=== PATIENT | female | born 1990 | race Caucasian/White ===

== ENCOUNTER 2025-02-15 11:59 | Observation (INO) ==
--- NOTE | 2025-02-15 12:18 | Emergency Department Note ---
HPI - Nausea/Vomiting/Diarrhea General Chief complaint: Nausea/Vomiting/Diarrhea Stated complaint: N/V, COLD SWEATS, DIARRHEA Time Seen by Provider: 02/15/25 12:11 Source: patient Mode of arrival: walk-in Limitations: no limitations History of Present Illness HPI Narrative: This is a 34 year old female patient that presents to the ER with c/o diffuse abdominal pain with N/V/D for 2 days. Patient denies any chest pain, SOB, back pain, fever, chills or painful urination MD elicited complaint: Reports nausea, vomiting, diarrhea and abdominal pain Onset (ago): day(s) (2) Location of pain: Reports diffuse Pain consistency: Reports constant Severity: mild Quality: Reports cramping Exacerbating factors: Reports none Relieving factors: Reports none Associated symptoms: Reports nausea/vomiting Related Data Home Medications Medication Instructions Recorded Confirmed bictegravir 50 mg-emtricitabine 1 tab PO DAILY 5 02/15/25 200 mg-tenofovir alafenam 25 mg tablet (Biktarvy) buspirone 10 mg tablet 10 mg PO Q8H 02/15/25 sertraline 25 mg tablet 25 mg PO Q24H 02/15/2502/15 Allergies Allergy/AdvReac Type Severity Reaction Status Date / Time No Known Drug Allergies Allergy Verified 02/15/25 12:21 Review of Systems Status of ROS 10 or more systems reviewed and unremark able except as noted in history and below Constitutional Denies: fever, chills, change in weight, fatigue, malaise or night sweats Eyes Denies: change in vision, blurry vision, blind spots or light sensitivity Ears, nose, mouth, and throat Denies: throat pain, neck pain, throat swelling, difficulty swallowing, hoarseness, mouth pain or swelling of lips/tongue Cardiovascular Denies: chest pain, palpitations, edema, swelling of feet/ankles, lightheadedness or shortness of breath with exertion Respiratory Denies: shortness of breath, cough, wheezing, stridor, pain on inspiration, change in phlegm color or coughing up blood Gastrointestinal Reports: abdominal pain, nausea, vomiting and diarrhea Genitourinary Denies: painful urination, urinary frequency, urinary urgency, urinary incontinence or blood in urine Musculoskeletal Denies: back pain, neck pain, extremity pain, extremity swelling, joint pain or limited range of motion Integumentary/Breast Denies: rash, itching, redness, skin pain, skin tenderness or skin swelling Neurological Denies: headache, numbness in extremities, weakness in extremities, lack of coordination, dizziness, vertigo or confusion Psychiatric Denies: anxiety, mood swings, panic attacks, change in sleep pattern or hopelessness Endocrine Denies: excessive urination, excessive thirst, fatigue, cold intolerance or excessive sweating Hematologic/Lymphatic Denies: easy bruising, easy bleeding or enlarged lymph nodes Allergic/Immunologic Denies: hives, throat swelling, tongue swelling, facial swelling or wheezing PFSH PFSH Medical History (Updated 02/15/25 @ 12:21 by Regi Newby RN) Anxiety Surgical History (Updated 09/30/24 @ 07:34 by Ashley Kennedy RN) H/O tubal ligation H/O section Social History Smoking status: current every day smoker Do you use any of these nicotine containing products: vaping products Second hand tobacco smoke exposure: No Within the past year, how often did you have a drink containing alcohol: never Within the past year, how often did you have six or more drinks on one occasion: never Score interpretation: A score less than 3 is consistent with normal alcohol consumption. Non-prescribed substance use: denies use What is your current living situation: I presently have a place to live Problems where you live: no known problems In the past 12 months, utilities in danger of being shut off: no In past 12 months, lack of transportation kept you from medical appts, meetings, work, or getting things needed for daily living: No How hard is it for you to pay for the very basics like food, housing, medical care, and heating: decline to answer Past 12 mos, fear food will run out before able to buy more: never true In past 12 months, food didn't last until money to buy more: never true Are you following a diet prescribed by a doctor: No Are you following a special diet: No Do you want help finding or keeping work or a job: I do not need or want help Known occupational exposures/hazards: No Highest level of school completed/degree received: decline to answer Do you want help with school or training: No How many days of moderate to strenuous exercise, like a brisk walk, did you do in the last 7 days: decline to answer Caffeine: No How often does anyone, including family, friends and others, physically hurt you : never How often does anyone, including family, friends and others, insult or talk down to you: never How often does anyone, including family, friends and others, threaten you with harm: never How often does anyone, including family, friends and others, scream or curse at you: never Firearms in home: no Do you need help with ADLs: I don't need any help Due to a physical, mental, or emotional condition, do you have difficulty doing errands alone such as visiting a doctor's office or shopping: No Little interest or pleasure in doing things: not at all Feeling down, depressed, or hopeless: not at all Feel stressed/tense/nervous/anxious/difficulty sleeping: not at all Due to disability, difficulty making decisions: No Do you think of yourself as: straight/heterosexual Gender Identity: female Are you currently sexually active: No Are you using contraception or practicing any form of control: No service: No Exam Constitutional: normal general appearance and no apparent distress Vital Signs - 24 hr 02/15/25 12:07 02/15/25 12:34 02/15/25 12:45 Temperature 98.9 F Pulse Rate 93 H Respiratory Rate 20 Blood Pressure 96/38 120/47 113/48 Pulse Oximetry 100 Oxygen Delivery Me thod Room Air 02/15/25 13:00 02/15/25 13:13 02/15/25 13:15 Temperature Pulse Rate 69 Respiratory Rate 20 Blood Pressure 109/51 115/57 112/54 Pulse Oximetry 96 Oxygen Delivery Ak thod Room Air HENMT: normocephalic, head/scalp atraumatic, hearing grossly normal bilaterally, external ears normal, EACs normal, nasal mucous membranes normal, external nose normal, oral mucous membranes normal and oropharynx normal Eyes: PERRL, EOMs intact bilaterally, conjunctivae normal and no scleral icterus Neck/C-Spine: visual inspection normal and trachea midline Lymph: no lymphadenopathy noted Chest: inspection of chest normal Respiratory: breath sounds equal bilaterally, normal respiratory effort, clear to auscultation bilaterally, no wheezes, no rales, no retractions, no use of accessory muscles and chest percussion normal Cardiovascular: normal heart rate noted, regular rhythm noted, no gallop, no rub, no murmur, no JVD, no clicks, peripheral pulses 2+ throughout, no bruits noted and no additional abnormal heart sounds Gastrointestinal: abdomen normal to inspection, abdomen soft to palpation, tender to palpation (diffuse) (mild), nontender to percussion, nondistended, normoactive bowel sounds, no hepatosplenomegaly, no masses, no pulsatile mass, no ascites and no hernia Genitourinary: no CVA tenderness Back/Pelvis: spine normal to inspection Extremities: normal to inspection, normal to palpation, no tenderness, full ROM, no joint enlargement and no deformity Neurology: no movement abnormality noted, no focal motor deficit noted, no sensory deficits noted, gait normal, speech normal, coordination normal, no pronator drift noted, no fasciculations noted and GCS normal Psychiatry: mental status grossly normal, oriented x3, thought process normal, cooperative and affect normal Skin: skin color normal Course Course Hospital Course: 1502: Due to elevated lactic, ongoing N/V, and hypokalemia, will admit patient to the medical floor for further evaluation and treatment. No s/s of acute d istress noted Vital Signs Vital signs: Vital Signs Temperature 98.9 F 02/15/25 12:07 Pulse Rate 93 H 02/15/25 12:07 Respiratory Rate 20 02/15/25 12:07 Blood Pressure 96/38 02/15/25 12:07 Pulse Oximetry 100 02/15/25 12:07 Oxygen Delivery Method Room Air 02/15/25 12:07 Temperature 98.9 F 02/15/25 12:07 Pulse Rate 69 02/15/25 13:13 Respiratory Rate 20 02/15/25 13:13 Blood Pressure 112/54 02/15/25 13:15 Pulse Oximetry 96 02/15/25 13:13 Oxygen Delivery Method Room Air 02/15/25 13:13 Discharge Plan Discharge Patient Disposition: Admitted As Observation Condition: Stable Clinical Impression: Hypokalemia, UTI (urinary tract infection), Elevated lactic acid level, Nausea & vomiting Time of Disposition: 15:04
[2025-02-15] MEDS ORDERED: 0.9 % SODIUM CHLORIDE 1000 ML 1,000 ML IV ONE (12:22)
[2025-02-15] MEDS ORDERED: ONDANSETRON HCL/PF 4 MG/2 ML VIAL ONE (12:22)
[2025-02-15] MEDS: 0.9 % SODIUM CHLORIDE 1000 ML 1,000 ML IV STA (12:24)
[2025-02-15] MEDS: ONDANSETRON HCL/PF 4 MG/2 ML VIAL INJ STA (12:24)
[2025-02-15 12:45] LABS: Basophils%(Percent) Auto 0.5 (0.1-0.85); Eosinophils%(Percent) Auto 0.2 % (0.4-2.8); Granulocytes % - Auto 76.7 % (47.8-71.3); Granulocytes#(Absolute)- Auto 5.9 (2.3-6.0); Hematocrit 42.9 % (35.9-46.7); Mean Corpuscular Volume 92.2 fl (81.0-93.7); Monocytes #(Absolute)- Auto 0.4 (1.1-3.1); Monocytes %(Percent)- Auto 5.5 % (3.6-9.8); Platelet Count 236 K/uL (152-353); White Blood Count 7.7 K/uL (4.3-9.3)
[2025-02-15 12:59] LABS: Potassium 3.1 mmol/L (3.6-5.2)
[2025-02-15] MEDS: POTASSIUM CHLORIDE 20 MEQ TAB.ER.PRT PO ONE (13:20)
[2025-02-15 13:22] LABS: PH BODY FLUID EXCP BLOOD 6.5 (5 - 9); Specific Gravity Urine 1.025 (1.001-1.035); Urine Appearance HAZY (CLEAR); Urine Blood TRACE (NEG - TRACE); Urine Color YELLOW (STRAW/YELL.); Urine Urobilinogen Normal (NORMAL)
[2025-02-15 13:34] LABS: Urine Amorphous Sediment Negative (Negative); Urine Yeast Negative (Negative)
[2025-02-15] MEDS ORDERED: CEFTRIAXONE SODIUM 1 GM VIAL ONE (13:52)
[2025-02-15] MEDS ORDERED: 0.9 % SODIUM CHLORIDE MB+ 50 ML IV ONE (13:52)
[2025-02-15] MEDS: CEFTRIAXONE SODIUM 1 GM in 0.9 % SODIUM CHLORIDE MB+ 50 ML IV ONE (13:58)
[2025-02-15] MEDS: 0.9 % SODIUM CHLORIDE 1000 ML 1,000 ML IV ONE (14:27)
[2025-02-15] MEDS: KETOROLAC 30 MG/ML INJ VIAL IVP ONE (16:00)
[2025-02-15] MEDS ORDERED: CIPROFLOXACIN 400 MG/200ML-D5W 400 MG/200 ML PIGGYBACK IV ONE (16:49)
[2025-02-15] MEDS: CIPROFLOXACIN 400 MG/200ML-D5W 400 MG/200 ML PIGGYBACK IV SCH (16:51)
[2025-02-15] MEDS ORDERED: DICYCLOMINE HCL 10 MG/ML AMPUL IM ONE (18:20)
[2025-02-15] MEDS: DICYCLOMINE HCL 10 MG/ML AMPUL IM STA (18:37)
[2025-02-15] MEDS ORDERED: POTASSIUM CL 40 MEQ/30 ML 40 MEQ/30 ML LIQUID PO SCH (19:30)
[2025-02-15] MEDS ORDERED: ONDANSETRON HCL/PF 4 MG/2 ML VIAL INJ PRN (20:28)
[2025-02-15] MEDS ORDERED: MAGNESIUM, ALUMINUM HYDROXIDE 30 ML ORAL.SUSP PO PRN (20:28)
[2025-02-15] MEDS ORDERED: ACETAMINOPHEN 500 MG TABLET PO PRN (20:28)
[2025-02-15] MEDS: BUSPIRONE HCL 5 MG TABLET PO SCH (22:12)
[2025-02-15] MEDS: SERTRALINE HCL 50 MG TABLET PO SCH (22:12)
[2025-02-15] MEDS: 0.9 % SODIUM CHLORIDE 1000 ML 1,000 ML IV SCH (22:13)
[2025-02-16 05:32] LABS: Basophils #(Absolute) Auto 0.1 (0.0-0.1); Eosinophils%(Percent) Auto 0.9 % (0.4-2.8); Granulocytes#(Absolute)- Auto 3.1 (2.3-6.0); Hematocrit 35.8 % (35.9-46.7); Mean Corpuscular Volume 91.8 fl (81.0-93.7); Monocytes #(Absolute)- Auto 0.6 (1.1-3.1); Monocytes %(Percent)- Auto 10.4 % (3.6-9.8); Platelet Count 179 K/uL (152-353); White Blood Count 5.5 K/uL (4.3-9.3)
[2025-02-16 06:00] LABS: Potassium 3.3 mmol/L (3.6-5.2)
[2025-02-16] MEDS: KETOROLAC 30 MG/ML INJ VIAL IVP ONE (06:17)
--- NOTE | 2025-02-16 06:46 | History & Physical Report ---
H&P: HPI History of Present Illness Chief complaint: N/V, COLD SWEATS, DIARRHEA Narrative: I did see this very pleasant but ill-appearing 58 yo female in the ER at the requested of the provider for intractable nausea and vomiting since early this a.m. Patient reports sudden onset abdominal cramping around 6am quickly followed by profound nausea and several episode of emesis as well as low back back. She denies urine frequency or urgency. This afternoon she began noticing palpitations and muscle cramping as well as frequent loose, watery or ill-formed stools She denies any signs of hematemesis or melena. She also denies any chest pain, dyspnea, dizziness or unsteady gait, headache or near-syncope. No one else in the home is ill at this time. She is not diabetic. Labs in the ER indicated K+ 2.9, this was initially treated with a 20mEq K-rider IV and 40mEq PO. EKG indicate some QT-prolongation otherwise NSR. WBC 11.3, Hgb 14, Mg 1.9, Lactic acid 1.3, AGap 10.0, BUN 8, Cre 0.9. Cardiac enzymes were order to assess for possible ACS and returned with trop-I 4.1 (n=4-60), lipase 33. UA indicated no UTI. I did add additional labs including a strep and COVID screen that were also found to be negative. An additional 40mEq PO was ordered for late afternoon and returned with new K+ 4.0. We can withhold further potassium supplement unless this decreases overnight. She was admitted with telemetry, comfort measures, IVFs. Review of Systems Status of ROS 10 or more systems reviewed and unremark able except as noted in history and below Constitutional Denies: fever, chills, change in weight, fatigue, malaise or night sweats Eyes Denies: change in vision, blurry vision, blind spots or light sensitivity Ears, nose, mouth, and throat Denies: throat pain, neck pain, throat swelling, difficulty swallowing, hoarseness, mouth pain, swelling of lips/tongue or vertigo Cardiovascular Denies: chest pain, palpitations, edema, swelling of feet/ankles, lightheadedness or shortness of breath with exertion Respiratory Denies: shortness of breath, cough, wheezing, stridor, pain on ins piration, change in phlegm color or coughing up blood Gastrointestinal Reports: abdominal pain, nausea, vomiting and diarrhea; Denies: difficulty swallowing Genitourinary Denies: painful urination, urinary frequency, urinary urgency, urinary incontinence or blood in urine Musculoskeletal Denies: back pain, neck pain, extremity pain, extremity swelling, joint pain or limited range of motion Integumentary/Breast Denies: rash, itching, redness, skin pain, skin tenderness or skin swelling Neurological Denies: headache, numbness in extremities, weakness in extremities, lack of coordination, dizziness, vertigo or confusion Psychiatric Denies: anxiety, mood swings, panic attacks, change in sleep pattern or hopelessness Endocrine Denies: excessive urination, excessive thirst, fatigue, cold into lerance or excessive sweating Hematologic/Lymphatic Denies: easy bruising, easy bleeding or enlarged lymph nodes Allergic/Immunologic Denies: hives, throat swelling, tongue swelling, facial swelling or wheezing PFSH PFSH Medical History (Updated 02/15/25 @ 12:21 by Regi Newby RN) Anxiety Surgical History (Updated 09/30/24 @ 07:34 by Ashley Kennedy RN) H/O tubal ligation H/O section Social History Smoking status: current every day smoker Do you use any of these nicotine containing products: vaping products Second hand tobacco smoke exposure: No Within the past year, how often did you have a drink containing alcohol: never Within the past year, how often did you have six or more drinks on one occasion: never Score interpretation: A score less than 3 is consistent with normal alcohol consumption. Non-prescribed substance use: denies use What is your current living situation: I presently have a place to live Problems where you live: no known problems In the past 12 months, utilities in danger of being shut off: no In past 12 months, lack of transportation kept you from medical appts, meetings, work, or getting things needed for daily living: No How hard is it for you to pay for the very basics like food, housing, medical care, and heating: decline to answer Past 12 mos, fear food will run out before able to buy more: never true In past 12 months, food didn't last until money to buy more: never true Are you following a diet prescribed by a doctor: No Are you following a special diet: No Do you want help finding or keeping work or a job: I do not need or want help Known occupational exposures/hazards: No Highest level of school completed/degree received: College Do you want help with school or training: No How many days of moderate to strenuous exercise, like a brisk walk, did you do in the last 7 days: decline to answer Caffeine: No How often does anyone, including family, friends and others, physically hurt you : never How often does anyone, including family, friends and others, insult or talk down to you: never How often does anyone, including family, friends and others, threaten you with harm: never How often does anyone, including family, friends and others, scream or curse at you: never Firearms in home: no Do you need help with ADLs: I don't need any help Due to a physical, mental, or emotional condition, do you have difficulty doing errands alone such as visiting a doctor's office or shopping: No Little interest or pleasure in doing things: not at all Feeling down, depressed, or hopeless: not at all Feel stressed/tense/nervous/anxious/difficulty sleeping: not at all Due to disability, difficulty making decisions: No Do you think of yourself as: straight/heterosexual Gender Identity: female Are you currently sexually active: No Are you using contraception or practicing any form of control: No service: No Meds Home Medications and Allergies Home Medications Medication Instructions Recorded Confirmed Type bictegravir 50 mg-emtricitabine 1 tab PO DAILY 5 02/15/25 History 200 mg-tenofovir alafenam 25 mg tablet (Biktarvy) buspirone 10 mg tablet 10 mg PO Q8H 02/15/25 History sertraline 25 mg tablet 25 mg PO Q24H 02/15/2502/15 History Allergies Allergy/AdvReac Type Severity Reaction Status Date / Time No Known Drug Allergies Allergy Verified 02/15/25 12:21 Exam Constitutional: normal general appearance and no apparent distress Vital Signs - 24 hr 02/15/25 12:07 02/15/25 12:34 02/15/25 12:45 Temperature 98.9 F Pulse Rate 93 H Pulse Rate [Brachi al] Respiratory Rate 20 Blood Pressure 96/38 120/47 113/48 Blood Pressure [Le ft Arm] Pulse Oximetry 100 Oxygen Delivery Me thod Room Air 02/15/25 13:00 02/15/25 13:13 02/15/25 13:15 Temperature Pulse Rate 69 Pulse Rate [Brachi al] Respiratory Rate 20 Blood Pressure 109/51 115/57 112/54 Blood Pressure [Le ft Arm] Pulse Oximetry 96 Oxygen Delivery Me thod Room Air 02/15/25 13:30 02/15/25 13:45 02/15/25 15:30 Temperature Pulse Rate Pulse Rate [Brachi al] Respiratory Rate Blood Pressure 112/54 102/53 110/56 Blood Pressure [Le ft Arm] Pulse Oximetry Oxygen Delivery Me thod 02/15/25 16:30 02/15/25 17:30 02/15/25 17:35 Temperature Pulse Rate 74 79 Pulse Rate [Brachi al] Respiratory Rate 20 20 Blood Pressure 101/68 108/64 Blood Pressure [Le ft Arm] Pulse Oximetry 96 98 Oxygen Delivery Me thod Room Air 02/15/25 17:35 02/15/25 18:29 02/15/25 20:13 Temperature 98.3 F 98.9 F Pulse Rate 80 80 Pulse Rate [Brachi al] 53 L Respiratory Rate 16 20 20 Blood Pressure 105/62 105/62 Blood Pressure [Le ft Arm] 116/65 Pulse Oximetry 99 97 97 Oxygen Delivery Me thod Room Air 02/15/25 20:28 02/16/25 06:00 Temperature 98.8 F 98.8 F Pulse Rate Pulse Rate [Brachi al] 59 L 57 L Respiratory Rate 16 16 Blood Pressure Blood Pressure [Le ft Arm] 121/67 108/55 Pulse Oximetry 98 98 Oxygen Delivery Me thod Room Air Room Air HENMT: normocephalic and head/scalp atraumatic oral mucosa tacky Eyes: PERRL, EOMs intact bilaterally, conjunctivae normal and no scleral icterus Neck/C-Spine: visual inspection normal, trachea midline and cervical full ROM noted Lymph: no lymphadenopathy noted Chest: inspection of chest normal Respiratory: breath sounds equal bilaterally, normal respiratory effort, no wheezes, no rales and no retractions Cardiovascular: normal heart rate noted, regular rhythm noted, no JVD and peripheral pulses 2+ throughout Gastrointestinal: abdomen normal to inspection, abdomen soft to palpation, nondistended and no ascites Genitourinary: no CVA tenderness and bladder normal to palpation Back/Pelvis: spine normal to inspection, no thoracic spine tenderness and no lumbar spine tenderness Extremities: normal to inspection, normal to palpation and full ROM 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, no movement abnormality noted, no sensory deficits noted, deep tendon reflexes 2+ bilaterally, speech normal and GCS normal gait not assessed Psychiatry: mental status grossly normal, oriented x3, cooperative and affect normal Feel stressed/tense/nervous/anxious/difficulty sleeping: not at all Skin: skin color normal and no rash no pallor Results Labs Labs: CBC 02/15/25 02/16/25 Range/Units 12:30 06:00 WBC 7.7 5.5 (4.3-9.3) K/uL RBC 4.7 3.9 L (4.00-5.50) M/uL Hgb 14.5 12.2 L (12.5-15.8) gm/dL Hct 42.9 35.8 L (35.9-46.7) % Plt Count 236 179 (152-353) K/uL Gran % 76.7 H 57.0 (47.8-71.3) % Lymph % (Auto) 17.1 L 30.7 (20.0-43.0) % [place] % (Auto) 5.5 10.4 H (3.6-9.8) % Eos % (Auto) 0.2 L 0.9 (0.4-2.8) % Baso % (Auto) 0.5 1.0 H (0.1-0.85) Lymph # (Auto) 1.3 1.7 (1.1-3.1) [place] # (Auto) 0.4 L 0.6 L (1.1-3.1) Eos # (Auto) 0.0 0.0 (0.0-0.2) Baso # (Auto) 0.0 0.1 (0.0-0.1) Absolute Gran (auto) 5.9 3.1 (2.3-6.0) CMP 02/15/25 02/16/25 12:30 05:50 Sodium 143 141 Potassium 3.1 L 3.3 L Chloride 103.0 109.0 H Carbon Dioxide 25 23 BUN 17 9 Creatinine 0.8 0.5 L Glucose 97 87 Calcium 9.2 8.0 L Liver Function 02/15/25 Range/Units 12:30 Total Bilirubin 0.54 (0.0-1.0) mg/dL AST 30 (15-37) U/L ALT 174 H (30-65) U/L Alkaline Phosphatase 92 (50-136) U/L Albumin 4.1 (3.4-5.0) g/dL Urine 02/15/25 13:11 Urine Color Yellow Urine Appearance Hazy Ur Specific [place] 1.025 Urine Protein 1+ Urine Glucose (UA) Normal Pulse Oximetry SpO2 results: 99% RA Imaging Imaging ordered: CT scan - abdomen Attestation: I have reviewed the pertinent imaging results.
--- NOTE | 2025-02-16 07:03 | History & Physical Report ---
H&P: HPI History of Present Illness Chief complaint: N/V, COLD SWEATS, DIARRHEA Narrative: This is a 34 year old female patient that presents to the ER with c/o diffuse abdominal pain with N/V/D for 2 days. Symptoms began suddenly 48 hours ago, no one else in the home ill. Symptoms not preceded by foods, oral intake, trauma or headache. Denies any hematemesis or melena or PMHx GIB. Patient denies any chest pain, SOB, back pain, fever, chills or painful urination. LNMP as recorded. She is not . No PMHx DM, HTN, CVD. She is a daily smoker with no illicit drug history. Review of Systems Status of ROS 10 or more systems reviewed and unremark able except as noted in history and below Constitutional Denies: fever, chills, change in weight, fatigue, malaise or night sweats Eyes Denies: change in vision, blurry vision, blind spots or light sensitivity Ears, nose, mouth, and throat Denies: throat pain, neck pain, throat swelling, difficulty swallowing, hoarseness, mouth pain, swelling of lips/tongue or vertigo Cardiovascular Denies: chest pain, palpitations, edema, swelling of feet/ankles, lightheadedness or shortness of breath with exertion Respiratory Denies: shortness of breath, cough, wheezing, stridor, pain on inspiration, change in phlegm color or coughing up blood Gastrointestinal Reports: abdominal pain, nausea, vomiting and diarrhea; Denies: difficulty swallowing Genitourinary Denies: painful urination, urinary frequency, urinary urgency, urinary incontinence or blood in urine Musculoskeletal Denies: back pain, neck pain, extremity pain, extremity swelling, joint pain or limited range of motion Integumentary/Breast Denies: rash, itching, redness, skin pain, skin tenderness or skin swelling Neurological Denies: headache, numbness in extremities, weakness in extremities, lack of coordination, dizziness, vertigo or confusion Psychiatric Denies: anxiety, mood swings, panic attacks, change in sleep pattern or hopelessness Endocrine Denies: excessive urination, excessive thirst, fatigue, cold intolerance or excessive sweating Hematologic/Lymphatic Denies: easy bruising, easy bleeding or enlarged lymph nodes Allergic/Immunologic Denies: hives, throat swelling, tongue swelling, facial swelling or wheezing [facility] Medical History Anxiety Surgical History H/O tubal ligation H/O section Social History Smoking status: current every day smoker Do you use any of these nicotine containing products: vaping products Second hand tobacco smoke exposure: No Within the past year, how often did you have a drink containing alcohol: never Within the past year, how often did you have six or more drinks on one occasion: never Score interpretation: A score less than 3 is consistent with normal alcohol consumption. Non-prescribed substance use: denies use What is your current living situation: I presently have a place to live Problems where you live: no known problems In the past 12 months, utilities in danger of being shut off: no In past 12 months, lack of transportation kept you from medical appts, meetings, work, or getting things needed for daily living: No How hard is it for you to pay for the very basics like food, housing, medical care, and heating: decline to answer Past 12 mos, fear food will run out before able to buy more: never true In past 12 months, food didn't last until money to buy more: never true Are you following a diet prescribed by a doctor: No Are you following a special diet: No Do you want help finding or keeping work or a job: I do not need or want help Known occupational exposures/hazards: No Highest level of school completed/degree received: College Do you want help with school or training: No How many days of moderate to strenuous exercise, like a brisk walk, did you do in the last 7 days: decline to answer Caffeine: No How often does anyone, including family, friends and others, physically hurt you : never How often does anyone, including family, friends and others, insult or talk down to you: never How often does anyone, including family, friends and others, threaten you with harm: never How often does anyone, including family, friends and others, scream or curse at you: never Firearms in home: no Do you need help with ADLs: I don't need any help Due to a physical, mental, or emotional condition, do you have difficulty doing errands alone such as visiting a doctor's office or shopping: No Little interest or pleasure in doing things: not at all Feeling down, depressed, or hopeless: not at all Feel stressed/tense/nervous/anxious/difficulty sleeping: not at all Due to disability, difficulty making decisions: No Do you think of yourself as: straight/heterosexual Gender Identity: female Are you currently sexually active: No Are you using contraception or practicing any form of control: No service: No Meds Home Medications and Allergies Home Medications Medication Instructions Recorded Confirmed Type bictegravir 50 mg-emtricitabine 1 tab PO DAILY 5 02/15/25 History 200 mg-tenofovir alafenam 25 mg tablet (Biktarvy) buspirone 10 mg tablet 10 mg PO Q8H 02/15/25 History sertraline 25 mg tablet 25 mg PO Q24H 02/15/2502/15 History Allergies Allergy/AdvReac Type Severity Reaction Status Date / Time No Known Drug Allergies Allergy Verified 02/15/25 12:21 Exam Constitutional: normal general appearance, no apparent distress, average body habitus and alert Vital Signs - 24 hr 02/15/25 12:07 02/15/25 12:34 02/15/25 12:45 Temperature 98.9 F Pulse Rate 93 H Pulse Rate [Brachi al] Respiratory Rate 20 Blood Pressure 96/38 120/47 113/48 Blood Pressure [Le ft Arm] Pulse Oximetry [facility] 02/15/25 13:00 02/15/25 13:13 02/15/25 13:15 Temperature Pulse Rate 69 Pulse Rate [Brachi al] Respiratory Rate 20 Blood Pressure 109/51 115/57 112/54 Blood Pressure [Le ft Arm] Pulse Oximetry 96 [facility] 02/15/25 13:30 02/15/25 13:45 02/15/25 15:30 Temperature Pulse Rate Pulse Rate [Brachi al] Respiratory Rate Blood Pressure 112/54 102/53 110/56 Blood Pressure [Le ft Arm] Pulse Oximetry Oxygen Delivery Ri thod 02/15/25 16:30 02/15/25 17:30 02/15/25 17:35 Temperature Pulse Rate 74 79 Pulse Rate [Brachi al] Respiratory Rate 20 20 Blood Pressure 101/68 108/64 Blood Pressure [Le ft Arm] Pulse Oximetry 96 98 Oxygen Delivery Me thod Room Air 02/15/25 17:35 02/15/25 18:29 02/15/25 20:13 Temperature 98.3 F 98.9 F Pulse Rate 80 80 Pulse Rate [Brachi al] 53 L Respiratory Rate 16 20 20 Blood Pressure 105/62 105/62 Blood Pressure [Le ft Arm] 116/65 Pulse Oximetry 99 97 97 Oxygen Delivery Me thod Room Air 02/15/25 20:28 02/16/25 06:00 Temperature 98.8 F 98.8 F Pulse Rate Pulse Rate [Brachi al] 59 L 57 L Respiratory Rate 16 16 Blood Pressure Blood Pressure [Le ft Arm] 121/67 108/55 Pulse Oximetry 98 98 Oxygen Delivery Me thod Room Air Room Air HENMT: normocephalic and head/scalp atraumatic Oral mucosa tacky Eyes: PERRL, EOMs intact bilaterally, conjunctivae normal and no scleral icterus Neck/C-Spine: visual inspection normal, trachea midline, cervical full ROM noted and no meningeal signs Lymph: no lymphadenopathy noted Chest: inspection of chest normal Respiratory: breath sounds equal bilaterally, normal respiratory effort, no wheezes, no rales and no retractions Cardiovascular: normal heart rate noted, regular rhythm noted, no gallop, no JVD and peripheral pulses 2+ throughout Gastrointestinal: abdomen normal to inspection, abdomen soft to palpation, nondistended and no ascites Back/Pelvis: spine normal to inspection, no thoracic spine tenderness and no lumbar spine tenderness Extremities: normal to inspection, normal to palpation and full ROM 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: 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, no movement abnormality noted, no focal motor deficit noted, speech normal and GCS normal Psychiatry: oriented x3, cooperative and affect normal Feel stressed/tense/nervous/anxious/difficulty sleeping: not at all Skin: skin color normal no pallor Assessment and Plan Assessment and Plan (1) Hypokalemia due to excessive gastrointestinal loss of potassium: Onset Date: ~02/15/25 Code(s): E87.6 - Hypokalemia (2) UTI (urinary tract infection): Onset Date: 02/13/25 Code(s): N39.0 - Urinary tract infection, site not specified (3) Elevated lactic acid level: Onset Date: ~02/15/25 Code(s): R79.89 - Other specified abnormal findings of blood chemistry (4) Nausea & vomiting: Onset Date: ~02/13/25 Code(s): R11.2 - Nausea with vomiting, unspecified Plan Admit to obs Comfort measures Correct K+ IVF resuscitation Monitor/correct lactic acidosis Continue UTI abx therapy pending C&S Results Labs Labs: CBC 02/15/25 02/16/25 Range/Units 12:30 06:00 WBC 7.7 5.5 (4.3-9.3) K/uL RBC 4.7 3.9 L (4.00-5.50) M/uL Hgb 14.5 12.2 L (12.5-15.8) gm/dL Hct 42.9 35.8 L (35.9-46.7) % Plt Count 236 179 (152-353) K/uL Gran % 76.7 H 57.0 (47.8-71.3) % Lymph % (Auto) 17.1 L 30.7 (20.0-43.0) % [place] % (Auto) 5.5 10.4 H (3.6-9.8) % Eos % (Auto) 0.2 L 0.9 (0.4-2.8) % Baso % (Auto) 0.5 1.0 H (0.1-0.85) Lymph # (Auto) 1.3 1.7 (1.1-3.1) [place] # (Auto) 0.4 L 0.6 L (1.1-3.1) Eos # (Auto) 0.0 0.0 (0.0-0.2) Baso # (Auto) 0.0 0.1 (0.0-0.1) Absolute Gran (auto) 5.9 3.1 (2.3-6.0) CMP 02/15/25 02/16/25 12:30 05:50 Sodium 143 141 Potassium 3.1 L 3.3 L Chloride 103.0 109.0 H Carbon Dioxide 25 23 BUN 17 9 Creatinine 0.8 0.5 L Glucose 97 87 Calcium 9.2 8.0 L Liver Function 02/15/25 Range/Units 12:30 Total Bilirubin 0.54 (0.0-1.0) mg/dL AST 30 (15-37) U/L ALT 174 H (30-65) U/L Alkaline Phosphatase 92 (50-136) U/L Albumin 4.1 (3.4-5.0) g/dL Urine 02/15/25 13:11 Urine Color Yellow Urine Appearance Hazy Ur Specific [place] 1.025 Urine Protein 1+ Urine Glucose (UA) Normal
[2025-02-16] MEDS ORDERED: CEFTRIAXONE SODIUM 1 GM VIAL IM ONE (08:00)
[2025-02-16] MEDS: CEFTRIAXONE SODIUM 1 GM in 0.9 % SODIUM CHLORIDE MB+ 50 ML IV SCH (09:37)
[2025-02-16] MEDS: TENOFOVIR ALAFENAMIDE PO SCH (12:30)
[2025-02-16] MEDS: BICTEGRAVIR PO SCH (12:30)
[2025-02-16] MEDS: EMTRICITABINE PO SCH (12:30)
[2025-02-16] MEDS: POTASSIUM CHLORIDE 20 MEQ TAB.ER.PRT PO ONE (12:31)
--- NOTE | 2025-02-16 13:29 | Progress Note ---
Progress Note: Subjective Subjective Interval history: Ms. Bazan has no significant complaints this morning. K is still low we will replace. She does have some nauea. Exam Constitutional: normal general appearance, no apparent distress, average body habitus and alert Vital Signs - 24 hr 02/15/25 13:30 02/15/25 13:45 02/15/25 15:30 Temperature Pulse Rate Pulse Rate [Brachi al] Respiratory Rate Blood Pressure 112/54 102/53 110/56 Blood Pressure [Le ft Arm] Pulse Oximetry Oxygen Delivery Me thod 02/15/25 16:30 02/15/25 17:30 02/15/25 17:35 Temperature Pulse Rate 74 79 Pulse Rate [Brachi al] Respiratory Rate 20 20 Blood Pressure 101/68 108/64 Blood Pressure [Le ft Arm] Pulse Oximetry 96 98 Oxygen Delivery Mt thod Room Air 02/15/25 17:35 02/15/25 18:29 02/15/25 20:13 Temperature 98.3 F 98.9 F Pulse Rate 80 80 Pulse Rate [Brachi al] 53 L Respiratory Rate 16 20 20 Blood Pressure 105/62 105/62 Blood Pressure [Le ft Arm] 116/65 Pulse Oximetry 99 97 97 Oxygen Delivery Mt thod Room Air 02/15/25 20:28 02/16/25 06:00 02/16/25 08:00 Temperature 98.8 F 98.8 F 98.3 F Pulse Rate Pulse Rate [Brachi al] 59 L 57 L 58 L Respiratory Rate 16 16 19 Blood Pressure Blood Pressure [Le ft Arm] 121/67 108/55 109/49 Pulse Oximetry 98 98 97 [facility] Room Air 02/16/25 12:00 Temperature 98.4 F Pulse Rate Pulse Rate [Brachi al] 62 Respiratory Rate 19 Blood Pressure Blood Pressure [Le ft Arm] 114/57 Pulse Oximetry 97 [facility] HENMT: normocephalic and head/scalp atraumatic Oral mucosa tacky Eyes: PERRL, EOMs intact bilaterally, conjunctivae normal and no scleral icterus Neck/C-Spine: visual inspection normal, trachea midline, cervical full ROM noted and no meningeal signs Lymph: no lymphadenopathy noted Chest: inspection of chest normal Respiratory: breath sounds equal bilaterally, normal respiratory effort, no wheezes, no rales and no retractions Cardiovascular: normal heart rate noted, regular rhythm noted, no gallop, no JVD and peripheral pulses 2+ throughout Gastrointestinal: abdomen normal to inspection, abdomen soft to palpation, nondistended and no ascites Back/Pelvis: spine normal to inspection, no thoracic spine tenderness and no lumbar spine tenderness Extremities: normal to inspection, normal to palpation and full ROM 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, no movement abnormality noted, no focal motor deficit noted, speech normal and GCS normal Psychiatry: oriented x3, cooperative and affect normal Feel stressed/tense/nervous/anxious/difficulty sleeping: not at all Skin: skin color normal no pallor Progress Note: Objective Labs Labs: CBC 02/16/25 Range/Units 06:00 WBC 5.5 (4.3-9.3) K/uL RBC 3.9 L (4.00-5.50) M/uL Hgb 12.2 L (12.5-15.8) gm/dL Hct 35.8 L (35.9-46.7) % Plt Count 179 (152-353) K/uL Gran % 57.0 (47.8-71.3) % Lymph % (Auto) 30.7 (20.0-43.0) % [place] % (Auto) 10.4 H (3.6-9.8) % Eos % (Auto) 0.9 (0.4-2.8) % Baso % (Auto) 1.0 H (0.1-0.85) Lymph # (Auto) 1.7 (1.1-3.1) [place] # (Auto) 0.6 L (1.1-3.1) Eos # (Auto) 0.0 (0.0-0.2) Baso # (Auto) 0.1 (0.0-0.1) Absolute Gran (auto) 3.1 (2.3-6.0) CMP 02/15/25 02/16/25 12:30 05:50 Sodium 143 141 Potassium 3.1 L 3.3 L Chloride 103.0 109.0 H Carbon Dioxide 25 23 BUN 17 9 Creatinine 0.8 0.5 L Glucose 97 87 Calcium 9.2 8.0 L Liver Function 02/15/25 Range/Units 12:30 Total Bilirubin 0.54 (0.0-1.0) mg/dL AST 30 (15-37) U/L ALT 174 H (30-65) U/L Alkaline Phosphatase 92 (50-136) U/L Albumin 4.1 (3.4-5.0) g/dL Urine 02/15/25 13:11 Urine Color Yellow Urine Appearance Hazy Ur Specific [place] 1.025 Urine Protein 1+ Urine Glucose (UA) Normal Imaging CT scan - abdomen: Radiologist's impression: Patient: Matilde Bazan MR#: [id number] : 1990 Acct:[id number] Age/Sex: 34 / F ADM Date: 02/15/25 Loc: ED Attending Dr: Ordering Physician: Janet Duncan Date of Service: 02/15/25 Procedure(s): CT abdomen pelvis w con Accession Number(s): [id number] cc: Provider,NO PCP; Janet Duncan~ EXAMINATION: CT ABDOMEN PELVIS W CON HISTORY: N/V X 3 DAYS, DIARRHEA; CV/AA. COMPARISON: 09/30/2024 TECHNIQUE: Postcontrast CT abdomen and pelvis was performed.. Reformatted images were obtained as well. Lack of oral contrast limits diagnostic sensitivity The above CT scan was done with automated exposure control and the mA and kV was adjusted to obtain quality images according to patient size. FINDINGS: Lung bases: No acute findings. Bilateral breast implants Liver: No acute finding or focal lesion. GB/Biliary: No gallstones or dilated ducts Spleen: Normal size and density Pancreas: No acute findings. No pseudocyst or dilated duct Adrenal Glands: No mass Kidneys: No obstructing stone, hydronephrosis or solid lesion Abdominal aorta: Tapers and enhances normally. Mesenteric vessels are patent. Retroperitoneum: No pathologically enlarged lymph nodes Bowel: No thickened or dilated loops of bowel, free fluid, free air, pneumatosis or abscess. Moderate stool. Appendix not definitely visualized. No CT evidence for appendicitis or obstruction. Bladder/: Ureters and bladder unremarkable. Follicles in the ovaries. No other pelvic or adnexal mass Osseous: No acute findings or bony lesions IMPRESSION: No acute intra-abdominal or intrapelvic process. No CT evidence for appendicitis, obstructing renal stone or obstruction. THIS IS AN ELECTRONICALLY VERIFIED FINAL REPORT 02/15/2025 2:18 PM - Electronically signed by Tacho Kaiser MD Dictated By: Tacho Kaiser Signed By: Progress Note: A&P Assessment and Plan (1) Hypokalemia due to excessive gastrointestinal loss of potassium: Onset Date: ~02/15/25 (2) UTI (urinary tract infection): Onset Date: 02/13/25 (3) Elevated lactic acid level: Onset Date: ~02/15/25 (4) Nausea & vomiting: Onset Date: ~02/13/25 Plan Admit to obs Correct K+ NS@100ml/hr Continue UTI abx therapy pending C&S Rocephin 1gm IV daily Cipro 400mg IV BID CBC BMP in AM Fall Risk Details [place] Fall Scale Risk Level: Low Fall Risk Current Medications: Current Medications Acetaminophen (Acetaminophen 500 Mg Tablet) 500 mg PO Q6H PRN PRN Reason: MILD PAIN SCALE 1-4 Buspirone HCl (Buspirone Hcl 5 Mg Tablet) 10 mg PO Q8H [facility] Last Admin: 02/16/25 12:31 Dose: 10 mg Ciprofloxacin/Dextrose (Ciprofloxacin 400 Mg/200ml-D5w) 400 mg in 200 mls @ 200 mls/hr IV Q12H [facility] Last Admin: 02/16/25 05:05 Dose: 200 mls/hr Sodium Chloride (Sodium Chloride) 1,000 mls @ 100 mls/hr IV CONT [facility] Last Admin: 02/16/25 08:18 Dose: 100 mls/hr Ceftriaxone Sodium 1 gm/ (Sodium Chloride) 50 mls @ 100 mls/hr IV DAILY [facility] Last Infusion: 02/16/25 10:07 Dose: Infused Magnesium Hydroxide (Magnesium, Aluminum Hydroxide 30 Ml Oral.Susp) 30 ml PO DAILY PRN PRN Reason: gerd (Bictegrav-Emtricit- Tenofov Ala [ Biktarvy] 50-200-25 Mg T 1 tab PO DAILY [facility] Last Admin: 02/16/25 12:30 Dose: Not Given Ondansetron HCl (Ondansetron Hcl 4 Mg/5 Ml Solution) 4 mg PO Q6H PRN PRN Reason: Nausea Ondansetron HCl (Ondansetron Hcl/Pf 4 Mg/2 Ml Vial) 4 mg INJ Q6H PRN PRN Reason: Nausea And Vomiting Potassium Chloride (Potassium Cl 40 Meq/30 Ml 40 Meq/30 Ml Liquid) 40 meq PO ONCE [place] Sertraline HCl (Sertraline Hcl 50 Mg Tablet) 25 mg PO Q24H [facility] Last Admin: 02/15/25 22:12 Dose: 25 mg Time Spent With Patient Time: Total time spent is greater than 50% in coordination of care (as documented) at patient's floor/unit and/or counseling patient:
[2025-02-17 05:50] LABS: Basophils%(Percent) Auto 0.8 (0.1-0.85); Eosinophils#(Absolute)Auto 0.1 (0.0-0.2); Eosinophils%(Percent) Auto 1.4 % (0.4-2.8); Granulocytes % - Auto 53.8 % (47.8-71.3); Granulocytes#(Absolute)- Auto 2.7 (2.3-6.0); Hematocrit 37.3 % (35.9-46.7); Mean Corpuscular Volume 91.3 fl (81.0-93.7); Monocytes #(Absolute)- Auto 0.5 (1.1-3.1); Monocytes %(Percent)- Auto 9.2 % (3.6-9.8); Platelet Count 193 K/uL (152-353); White Blood Count 5.1 K/uL (4.3-9.3)
[2025-02-17 06:11] LABS: Potassium 3.9 mmol/L (3.6-5.2)
[2025-02-17 16:04] VITALS: BP 110/49; PULSE 63; RESP 17; TEMP 98.6
[2025-02-17] MEDS ORDERED: CIPROFLOXACIN HCL 500 MG TABLET PO SCH (17:00)
--- NOTE | 2025-02-17 17:41 | Discharge Summary ---
DS: Providers Provider Date of admission: 02/15/25 16:07 Primary care physician: NO PCP Provider DS: Diagnosis Discharge Diagnosis (1) Hypokalemia due to excessive gastrointestinal loss of potassium: Onset Date: ~02/15/25 Assessment and plan: Resolved (2) UTI (urinary tract infection): Onset Date: 02/13/25 Assessment and plan: Prescription for Cipro 500mg po BID x 3 days (3) Elevated lactic acid level: Onset Date: ~02/15/25 Assessment and plan: Resolved (4) Nausea & vomiting: Onset Date: ~02/13/25 Assessment and plan: Prescription for Zofran 4mg po every 6 hours as needed Plan Discharge home. Follow up with Kathy Ortega. Appointment scheduled for 02/21/25. PCP to schedule referral to GI for further evaluation for recent weight loss. Prescription for Cipro 500mg PO BID for 3 days for UTI and campylobacter in stool. Prescription for Zofran for nausea. Avoid THC products, Tylenol, NSAIDs, and ETOH. Return to ER if symptoms worsen; fever, increased abdominal pain, nausea/vomiting not relieved with antiemetic. DS: Summary Hospital Course Hospital Course: Ms. Bazan is a 34 year old female that presented to the ER on 02/15/25 with complaints of diffuse abdominal pain with N/V/D for 2 days. Patient denied any chest pain, SOB, back pain, fever, chills or painful urination. Initial CBC was unremarkable. CMP revealed hypokalemia with a K of 3.1 and elevated ALT at 174. Lipase normal at 23. Initial Lactic acid was 1.8. Urinalysis was positive for UTI and urine culture came back positive for Enteribacter Cloacae complex. CT abdomen and pelvis revealed no acute intra-abdominal or intrapelvic process or evidence for appendicitis, obstructing renal stone or obstruction. Due to elevated lactic acid, ongoing N/V/D, and hypokalemia, patient was admitted to the medical floor for further evaluation and treatment. She was given NS at 100 ml/hr and started on Cipro and Rocephin for UTI. Potassium was corrected with 40mEq PO x 1 dose and was 3.9 on am labs this morning. Repeat lactic acid improved to 1.1. Patient complaining of ongoing nausea without vomiting and decreased appetite. Upon examination this morning, patient revealed that she regularly utilizes THC gummies and has lost approximately 50 pounds in the past 6 months. Patient denies abdominal pain but is found with abdominal tenderness upon examination. Patient also reports "watery" diarrhea with "six or seven" bowel movements this morning. Stool studies ordered and found to be positive for Campylobacter. Patient verbalizes that she feels ready for discharge. Plan is to discharge home and follow up with Kathy Ortega. Appointment scheduled for 02/21/25. PCP to schedule referral to GI for further evaluation for recent weight loss. Prescription for Cipro 500mg PO BID for 3 days and Zofran po every 6 hours as needed. Patient instructed to avoid THC products, Tylenol, NSAIDs, and ETOH. She is to return to ER if symptoms worsen; fever, increased abdominal pain, nausea/vomiting not relieved with antiemetic. Patient verbalized understanding. Status at Discharge Cognitive/behavioral status at discharge: Alert and oriented to person, place, time, and situation upon discharge. Functional status at discharge: independent ambulation Overall status at discharge: patient is progressing back to baseline Time Spent with Patient Time attestation: Total time spent providing and/or coordinating discharge services: Time spent: greater than 30 minutes Exam Constitutional: Vital Signs - 24 hr 02/16/25 19:00 02/17/25 00:00 02/17/25 04:00 Temperature 98.7 F 98.7 F 98.1 F Pulse Rate [Brachi al] 67 62 64 Respiratory Rate 17 17 17 Blood Pressure [Le ft Arm] 94/52 109/56 113/59 Pulse Oximetry 98 98 98 Oxygen Delivery Me thod Room Air Room Air 02/17/25 07:58 02/17/25 12:00 02/17/25 16:00 Temperature 98.3 F 98.3 F 98.6 F Pulse Rate [Brachi al] 61 67 63 Respiratory Rate 16 16 17 Blood Pressure [Le ft Arm] 106/48 123/65 110/49 Pulse Oximetry 99 99 98 Oxygen Delivery Me thod Room Air Room Air Room Air HENMT: normocephalic, head/scalp atraumatic, hearing grossly normal bilaterally, external ears normal and external nose normal Eyes: PERRL, EOMs intact bilaterally, conjunctivae normal, no scleral icterus, no papilledema and visual acuity normal Neck/C-Spine: visual inspection normal, trachea midline, cervical full ROM noted, supple and no meningeal signs Lymph: no lymphadenopathy noted and no lymphedema noted Chest: inspection of chest normal and palpation of chest normal Respiratory: breath sounds equal bilaterally, normal respiratory effort, clear to auscultation bilaterally, no wheezes, no rales, no retractions and no use of accessory muscles Cardiovascular: normal heart rate noted, regular rhythm noted, no gallop, no rub, no murmur, no JVD, no clicks, peripheral pulses 2+ throughout and no bruits noted Gastrointestinal: abdomen soft to palpation Patient denies abdominal pain but is found with abdominal tenderness upon examination. Patient also reports "watery" diarrhea with "six or seven" bowel movements this morning. Genitourinary: no CVA tenderness Back/Pelvis: spine normal to inspection Extremities: normal to inspection, normal to palpation, no tenderness, full ROM, no joint enlargement and no deformity Neurology: director of curriculum II-XII intact, no movement abnormality noted, no focal motor deficit noted, no sensory deficits noted and deep tendon reflexes 2+ bilaterally Psychiatry: Mental Status Exam documented in the separate MSE mental status grossly normal, oriented x3, thought process normal, cooperative, affect normal, psychomotor activity normal and memory normal Skin: skin color normal DS: Data Data Completed and Pending Labs on day of discharge: Labs from last 24 hours 02/17/25 02/17/25 02/17/25 12:45 12:30 05:50 WBC 5.1 RBC 4.1 Hgb 12.8 Hct 37.3 MCV 91.3 MCH 31.3 MCHC 34.3 RDW 11.9 Plt Count 193 MPV 9.5 Gran % 53.8 Lymph % (Auto) 34.8 [place] % (Auto) 9.2 Eos % (Auto) 1.4 Baso % (Auto) 0.8 Lymph # (Auto) 1.8 [place] # (Auto) 0.5 L Eos # (Auto) 0.1 Baso # (Auto) 0.0 Absolute Gran (auto) 2.7 Sodium 142 Potassium 3.9 Chloride 110.0 H Carbon Dioxide 28 Anion Gap 4.0 BUN 3 L Creatinine 0.7 Estimated GFR 117.8 Glucose 125 H Calcium 7.9 L Lipase 35.0 Stool for White Cells Positive Cryptosporidium/Giardia Negative Stl Cryptosporidium Ag Negative Discharge Plan Discharge Disposition: Home, Self-Care Condition: Stable Discharge Medications: New ciprofloxacin HCl 500 mg tablet 500 mg PO BID Qty: 6 0RF ondansetron 4 mg tablet,disintegrating 4 mg PO Q6H PRN (Reason: nausea and vomiting) Qty: 20 0RF Continued buspirone 10 mg tablet 10 mg PO Q8H Patient Comments: TAKE 1 TABLET BY MOUTH THREE TIMES DAILY sertraline 25 mg tablet 25 mg PO Q24H Patient Comments: TAKE 1 TABLET BY MOUTH IN THE MORNING Biktarvy 50-200-25 mg tablet 1 tab PO DAILY Discharge Orders: Discharge Order (Routine); Ordered 02/17/25 Ordered By: Kandis Andersen Activity: increase activity as tolerated Diet: advance to your usual diet Diet Detail: Advance diet as tolerated. Interventions: Discharge Assessment Last Done: 02/17/25 16:28 MED/SURG & ICU Observation Charge Sheet Last Done: 02/17/25 16:28 Plan of Treatment: Discharge home. Follow up with Kathy Ortega. Appointment scheduled for 02/21/25. PCP to schedule referral to GI for further evaluation for recent weight loss. Prescription for Cipro 500mg PO BID for 3 days for UTI and campylobacter in stool. Prescription for Zofran for nausea. Avoid THC products, Tylenol, NSAIDs, and ETOH. Return to ER if symptoms worsen; fever, increased abdominal pain, nausea/vomiting not relieved with antiemetic. Patient Instructions: Urinary Tract Infection in Women (GEN), Acute Nausea and Vomiting (GEN) Forms: Portal/Health Info Access Inst Follow-Ups: Kathy Ortega [Nurse Practitioner] Discharge Date/Time: 02/17/25 17:14
== END 2025-02-17 17:14 | disposition home or self-care (01) ==
LOC: MS 11:59 → ED 11:59 → MS 20:18
PROVIDERS: ADMIT Physician Assistant Medical; ATTEND Physician Assistant Medical
DX: N39.0 Urinary tract infection, site not specified; R74.02 Elevation of levels of lactic acid dehydrogenase [LDH]; E87.6 Hypokalemia; F17.200 Nicotine dependence, unspecified, uncomplicated; F41.9 Anxiety disorder, unspecified; Z79.899 Other long term (current) drug therapy; R11.2 Nausea with vomiting, unspecified